=== PATIENT | female | born 1985 | race Caucasian/White ===

== ENCOUNTER 2018-05-16 21:13 | Outpatient (CLI) | payer BC, OTHER | END 2018-05-16 22:55 | disposition home or self-care (01) | LOC: M LDO 21:13 | DX: O26.893 Other specified pregnancy related conditions, third trimester (principal); Z3A.34 34 weeks gestation of pregnancy; O30.043 Twin pregnancy, dichorionic/diamniotic, third trimester; N89.8 Other specified noninflammatory disorders of vagina | CPT/HCPCS: 76815 ==

== ENCOUNTER → 2018-05-18 | Outpatient (CLI) | payer BC, OTHER | LOC: M RAD 14:21 | DX: O30.043 Twin pregnancy, dichorionic/diamniotic, third trimester (principal); Z3A.34 34 weeks gestation of pregnancy; O32.1XX1 Maternal care for breech presentation, fetus 1; O32.2XX2 Maternal care for transverse and oblique lie, fetus 2 | CPT/HCPCS: 76819 ==

== ENCOUNTER 2018-05-21 18:06 | Outpatient (CLI) | payer BC, OTHER ==
[2018-05-21 19:04] LABS: HEMATOCRIT 36.9 % (36.0-47.0); HEMOGLOBIN 12.4 g/dl (12.0-15.5); MEAN CORPUSCULAR HEMOGLOBIN 31.3 pg (27.0-33.0); MEAN CORPUSCULAR HGB CONC 33.6 g/dl (32.0-36.5); MEAN CORPUSCULAR VOLUME 93.2 fl (80.0-96.0); PLATELET COUNT, AUTOMATED 132 10^3/uL (150-450); RED BLOOD COUNT 3.96 10^6/uL (4.00-5.40); RED CELL DISTRIBUTION WIDTH 14.5 % (11.5-14.5); WHITE BLOOD COUNT 12.1 10^3/uL (4.0-10.0)
[2018-05-21 19:15] LABS: CREATININE,RANDOM URINE 34.1 MG/DL
[2018-05-21 19:15] LABS: TOTAL PROTEIN,RANDOM URINE 8.9 MG/DL (0.0-12.0)
[2018-05-21 19:28] LABS: ALBUMIN 2.6 GM/DL (3.2-5.2); ALKALINE PHOSPHATASE 180 U/L (45-117); ALT/SGPT 19 U/L (12-78); ANION GAP 8 MEQ/L (8-16); AST/SGOT 21 U/L (7-37); BILIRUBIN,TOTAL 0.2 MG/DL (0.2-1.0); BLOOD UREA NITROGEN 6 MG/DL (7-18); CALCIUM LEVEL 8.2 MG/DL (8.5-10.1); CARBON DIOXIDE LEVEL 24 MEQ/L (21-32); CHLORIDE LEVEL 110 MEQ/L (98-107); CREATININE FOR GFR 0.58 MG/DL (0.55-1.30); GLOMERULAR FILTRATION RATE > 60.0 (>60); GLUCOSE, FASTING 65 MG/DL (70-100); LDH LACTATE DEHYDROGENASE 167 U/L (84-246); POTASSIUM SERUM 4.2 MEQ/L (3.5-5.1); SODIUM LEVEL 142 MEQ/L (136-145); TOTAL PROTEIN 6.3 GM/DL (6.4-8.2); URIC ACID 4.9 MG/DL (2.6-6.0)
[2018-05-21] MEDS: BETAMETHASONE SOLUSPAN 6MG/ML INJ 5ML (J0702) IM (22:00)
[2018-05-22] MEDS ORDERED: LR 1,000 ML IV (00:45)
[2018-05-22 21:23] LABS: TOTAL VOLUME, URINE 1650 ML
[2018-05-22 21:45] LABS: TOTAL PROTEIN 24 HOUR URINE 318.4 MG/24HR (50-150); URINE TOTAL PROTEIN 19.3 MG/DL (0-12)
[2018-05-22] MEDS: BETAMETHASONE SOLUSPAN 6MG/ML INJ 5ML (J0702) IM (22:14)
== END 2018-05-22 22:47 | disposition home or self-care (01) ==
LOC: M LDO 18:06 → M OBS 05-22 15:15 → M LDO 05-22 22:47
DX: O30.043 Twin pregnancy, dichorionic/diamniotic, third trimester (principal); Z3A.35 35 weeks gestation of pregnancy; R60.9 Edema, unspecified; D69.6 Thrombocytopenia, unspecified; O14.03 Mild to moderate pre-eclampsia, third trimester; O13.3 Gestational [pregnancy-induced] hypertension without significant proteinuria, third trimester; O99.13 Other diseases of the blood and blood-forming organs and certain disorders involving the immune mechanism complicating the puerperium
CPT/HCPCS: J0702

== ENCOUNTER 2018-05-25 19:00 | Inpatient (IN) | payer BC ==
[2018-05-24] MEDS: BICITRA 30ML SOLN UDC PO (23:24)
[2018-05-25] MEDS ORDERED: LR 1,000 ML IV (19:12)
[2018-05-25] MEDS: LACTATED RINGER'S 1000 ML IV (19:12)
[2018-05-25 20:23] LABS: HEMATOCRIT 35.6 % (36.0-47.0); HEMOGLOBIN 11.9 g/dl (12.0-15.5); MEAN CORPUSCULAR HEMOGLOBIN 31.1 pg (27.0-33.0); MEAN CORPUSCULAR HGB CONC 33.4 g/dl (32.0-36.5); PLATELET COUNT, AUTOMATED 119 10^3/uL (150-450); RED BLOOD COUNT 3.83 10^6/uL (4.00-5.40); RED CELL DISTRIBUTION WIDTH 14.5 % (11.5-14.5); WHITE BLOOD COUNT 13.2 10^3/uL (4.0-10.0)
[2018-05-25 22:19] LABS: HBSAG L&D NEGATIVE (NEGATIVE)
[2018-05-25] MEDS ORDERED: ONDANSETRON 4MG/2ML VIAL (J2405) As Ordered (23:06)
[2018-05-25] MEDS ORDERED: OXYTOCIN INJ 10 UNITS/ML VIAL (J2590) As Ordered (23:06)
[2018-05-25] MEDS ORDERED: dexameTHASONE 4 MG/ML 1ML VIAL (J1100) As Ordered (23:06)
[2018-05-25] MEDS ORDERED: MORPHINE PRES-FREE INJ 10 MG/10 ML VIAL (J2274) As Ordered (23:08)
[2018-05-25] MEDS ORDERED: METOCLOPRAMIDE INJ 10MG/2ML VIAL (J2765) IV (23:42)
[2018-05-25] MEDS ORDERED: ONDANSETRON 4MG/2ML VIAL (J2405) IV (23:42)
[2018-05-25] MEDS ORDERED: NALOXONE INJ 0.4 MG/1 ML VIAL (J2310) IV ×2 (23:42)
[2018-05-26] MEDS ORDERED: MEPERIDINE 50 MG/ML 1ML VIAL (J2175) As Ordered (00:29)
[2018-05-26] MEDS ORDERED: OXYTOCIN INJ 10 UNITS/ML VIAL (J2590) As Ordered ×2 (00:35)
[2018-05-26] MEDS ORDERED: KETOROLAC 60 MG/2 ML VIAL (J1885) As Ordered (00:43)
[2018-05-26] MEDS: LR 1,000 ML IV ×3 (00:47→16:47)
[2018-05-26] MEDS ORDERED: ONDANSETRON 4MG/2ML VIAL (J2405) IV ×2 (01:00)
[2018-05-26] MEDS: OXYTOCIN DRIP 30 UNITS in APPROPRIATE DILUENT 1 EA IV (01:00)
[2018-05-26] MEDS ORDERED: fentaNYL 100 MCG/2 ML INJECTION (J3010) IV (01:00)
[2018-05-26] MEDS ORDERED: MOM 30ML SUSPENSION UDC PO (01:00)
[2018-05-26] MEDS ORDERED: HYDROMORPHONE HCL 0.5 MG/ 0.5 ML SYRINGE (J1170 PER 1) IV (01:00)
[2018-05-26] MEDS ORDERED: PERCOCET 5MG/325MG TAB As Ordered (01:20)
[2018-05-26] MEDS: PERCOCET 5MG/325MG TAB PO (01:22)
[2018-05-26] MEDS: NALBUPHINE HCL 10 MG/ML AMP (J2300) IV (03:04)
[2018-05-26] MEDS: KETOROLAC 30 MG/ML VIAL (J1885) IV ×3 (06:42→18:29)
[2018-05-26 08:06] LABS: HEMATOCRIT 31.3 % (36.0-47.0); HEMOGLOBIN 10.4 g/dl (12.0-15.5); MEAN CORPUSCULAR HEMOGLOBIN 31.4 pg (27.0-33.0); MEAN CORPUSCULAR HGB CONC 33.2 g/dl (32.0-36.5); MEAN CORPUSCULAR VOLUME 94.6 fl (80.0-96.0); PLATELET COUNT, AUTOMATED 116 10^3/uL (150-450); RED BLOOD COUNT 3.31 10^6/uL (4.00-5.40); RED CELL DISTRIBUTION WIDTH 14.3 % (11.5-14.5); WHITE BLOOD COUNT 16.4 10^3/uL (4.0-10.0)
[2018-05-26 08:33] LABS: ALT/SGPT 59 U/L (12-78); AST/SGOT 59 U/L (7-37); BILIRUBIN,TOTAL 0.3 MG/DL (0.2-1.0); CREATININE FOR GFR 0.67 MG/DL (0.55-1.30); GLOMERULAR FILTRATION RATE > 60.0 (>60); LDH LACTATE DEHYDROGENASE 275 U/L (84-246); URIC ACID 4.9 MG/DL (2.6-6.0)
[2018-05-26] MEDS: PRENATAL VITAMINS CHEWABLE TABLET PO (08:43)
[2018-05-27] MEDS: PERCOCET 5MG/325MG TAB PO ×4 (00:10→22:14)
[2018-05-27] MEDS: SIMETHICONE 80 MG CHEW TAB PO ×2 (02:15→17:20)
[2018-05-27] MEDS: IBUPROFEN 800 MG TAB PO ×3 (03:31→18:47)
[2018-05-27 07:05] LABS: HEMATOCRIT 23.1 % (36.0-47.0); MEAN CORPUSCULAR HEMOGLOBIN 31.1 pg (27.0-33.0); MEAN CORPUSCULAR HGB CONC 32.9 g/dl (32.0-36.5); MEAN CORPUSCULAR VOLUME 94.7 fl (80.0-96.0); RED BLOOD COUNT 2.44 10^6/uL (4.00-5.40); RED CELL DISTRIBUTION WIDTH 14.6 % (11.5-14.5); WHITE BLOOD COUNT 13.3 10^3/uL (4.0-10.0)
[2018-05-27 07:50] LABS: HEMOGLOBIN 7.6 g/dl (12.0-15.5); PLATELET COUNT, AUTOMATED 96 10^3/uL (150-450)
[2018-05-27 07:51] LABS: IMMATURE PLATELET FRACTION % 18.5 % (0.0-9.6)
[2018-05-27 10:13] LABS: IMMEDIATE SPIN CROSSMATCH 1 2
[2018-05-27] MEDS: hydrOXYzine 10 MG TAB PO (11:00)
[2018-05-27] MEDS ORDERED: diphenhydrAMINE 50 MG CAP As Ordered (11:07)
[2018-05-27] MEDS ORDERED: ACETAMINOPHEN 500 MG TAB As Ordered (11:07)
[2018-05-27] MEDS: diphenhydrAMINE 50 MG CAP PO (11:09)
[2018-05-27] MEDS: ACETAMINOPHEN 500 MG TAB PO (11:09)
[2018-05-27] MEDS: PRENATAL VITAMINS CHEWABLE TABLET PO (12:37)
[2018-05-27] MEDS: RHOGAM 300 MCG (1500 IU) INJ (J2790) IM (13:40)
[2018-05-27] MEDS: MEASLES,MUMPS,RUBELLA VACCINE INJ (MMR-II) (90707) SC (13:41)
[2018-05-27] MEDS: DOCUSATE SODIUM 100 MG CAP PO (22:14)
[2018-05-28] MEDS: IBUPROFEN 800 MG TAB PO ×3 (02:55→18:28)
[2018-05-28] MEDS: SIMETHICONE 80 MG CHEW TAB PO ×2 (02:55→18:04)
[2018-05-28] MEDS: PERCOCET 5MG/325MG TAB PO ×4 (04:42→18:29)
[2018-05-28 06:47] LABS: HEMATOCRIT 26.7 % (36.0-47.0); HEMOGLOBIN 8.8 g/dl (12.0-15.5); MEAN CORPUSCULAR HEMOGLOBIN 30.7 pg (27.0-33.0); PLATELET COUNT, AUTOMATED 101 10^3/uL (150-450); RED BLOOD COUNT 2.87 10^6/uL (4.00-5.40); RED CELL DISTRIBUTION WIDTH 15.4 % (11.5-14.5); WHITE BLOOD COUNT 13.3 10^3/uL (4.0-10.0)
[2018-05-28] MEDS: PRENATAL VITAMINS CHEWABLE TABLET PO (08:59)
[2018-05-28] MEDS: ADACEL/BOOSTRIX VACCINE (DIPHTH/PERTUSS/ACELL/TETANUS)0.5ML SYR (90715) IM (14:13)
[2018-05-28] MEDS: FERROUS SULFATE 325MG TAB PO (21:44)
[2018-05-29] MEDS: IBUPROFEN 800 MG TAB PO ×2 (03:44→10:23)
[2018-05-29] MEDS: SIMETHICONE 80 MG CHEW TAB PO ×2 (03:59→11:48)
[2018-05-29] MEDS: PERCOCET 5MG/325MG TAB PO ×2 (04:03→10:24)
[2018-05-29] MEDS: FERROUS SULFATE 325MG TAB PO (08:35)
[2018-05-29] MEDS: PRENATAL VITAMINS CHEWABLE TABLET PO (08:35)
== END 2018-05-29 13:20 | disposition home or self-care (01) | DRG 540 ==
LOC: M LDI 19:00 → M OBS 05-26 07:10
PROVIDERS: Advanced Practice Midwife
PROC: 10D00Z1 Extraction of Products of Conception, Low, Open Approach (ICD-10-PCS; principal; 2018-05-25 23:33)
PROC: 0UB70ZZ Excision of Bilateral Fallopian Tubes, Open Approach (ICD-10-PCS; 2018-05-25 23:33)
PROC: 30233N1 Transfusion of Nonautologous Red Blood Cells into Peripheral Vein, Percutaneous Approach (ICD-10-PCS; 2018-05-25 23:33)
DX: O14.14 Severe pre-eclampsia complicating childbirth (principal); D69.6 Thrombocytopenia, unspecified; O60.14X0 Preterm labor third trimester with preterm delivery third trimester, not applicable or unspecified; O30.043 Twin pregnancy, dichorionic/diamniotic, third trimester; Z37.2 Twins, both liveborn; O99.12 Other diseases of the blood and blood-forming organs and certain disorders involving the immune mechanism complicating childbirth; Z3A.35 35 weeks gestation of pregnancy; O34.211 Maternal care for low transverse scar from previous cesarean delivery; Z30.2 Encounter for sterilization; O32.1XX1 Maternal care for breech presentation, fetus 1; O32.8XX2 Maternal care for other malpresentation of fetus, fetus 2; D64.9 Anemia, unspecified; O99.02 Anemia complicating childbirth

== ENCOUNTER → 2018-05-25 | Outpatient (CLI) | payer BC ==
[2018-05-25 15:56] LABS: HEMATOCRIT 37.1 % (36.0-47.0); HEMOGLOBIN 12.3 g/dl (12.0-15.5); MEAN CORPUSCULAR HEMOGLOBIN 31.2 pg (27.0-33.0); MEAN CORPUSCULAR HGB CONC 33.2 g/dl (32.0-36.5); MEAN CORPUSCULAR VOLUME 94.2 fl (80.0-96.0); PLATELET COUNT, AUTOMATED 117 10^3/uL (150-450); RED BLOOD COUNT 3.94 10^6/uL (4.00-5.40); RED CELL DISTRIBUTION WIDTH 14.5 % (11.5-14.5); WHITE BLOOD COUNT 12.7 10^3/uL (4.0-10.0)
[2018-05-25 16:20] LABS: CREATININE,RANDOM URINE 84.4 MG/DL
[2018-05-25 16:20] LABS: TOTAL PROTEIN,RANDOM URINE 30.1 MG/DL (0.0-12.0)
[2018-05-25 16:54] LABS: ALT/SGPT 44 U/L (12-78); AST/SGOT 43 U/L (7-37); BILIRUBIN,TOTAL 0.2 MG/DL (0.2-1.0); CREATININE FOR GFR 0.67 MG/DL (0.55-1.30); GLOMERULAR FILTRATION RATE > 60.0 (>60); LDH LACTATE DEHYDROGENASE 191 U/L (84-246); URIC ACID 5.5 MG/DL (2.6-6.0)
== END ==
LOC: M LAB 15:14
DX: O30.043 Twin pregnancy, dichorionic/diamniotic, third trimester (principal); Z3A.00 Weeks of gestation of pregnancy not specified
CPT/HCPCS: 84460

== ENCOUNTER → 2018-05-25 | Outpatient (CLI) | payer BC, OTHER | LOC: M RAD 14:18 | DX: O30.043 Twin pregnancy, dichorionic/diamniotic, third trimester (principal); Z3A.35 35 weeks gestation of pregnancy; O32.1XX1 Maternal care for breech presentation, fetus 1; O32.1XX2 Maternal care for breech presentation, fetus 2 | CPT/HCPCS: 76815 ==

== ENCOUNTER → 2018-06-08 | Outpatient (REF) | payer BC | LOC: M LAB REF 17:14 | DX: R30.0 Dysuria (principal) | CPT/HCPCS: 87086 ==

== ENCOUNTER → 2019-10-04 | Outpatient (REF) | payer OTHER ==
[~2019-10-04] MED LIST: COLA100C5 PO; IBUP1TAB7 PO; IRON27TA2 PO; PERCOCET PO; PRENTAB9 PO
[2019-10-04 22:02] LABS: CHLAMYDIA DNA AMPLIFICATION NEGATIVE (NEGATIVE); GC DNA AMPLIFICATION NEGATIVE (NEGATIVE)
== END ==
LOC: M SFHCLERA 18:35
PROVIDERS: ATTEND Nurse Practitioner Family
DX: R30.0 Dysuria (principal); N89.8 Other specified noninflammatory disorders of vagina